=== PATIENT | female | born 1970 | race Caucasian/White ===

== ENCOUNTER 2016-10-27 03:10 | Inpatient (IN) | payer OTHER ==
[~2016-10-27] VITALS: Ht 182.9 cm; Wt 95.5 kg
[2016-10-27 03:42] LABS: BASOPHILS # (AUTO) 0.03 K/uL (0.00-0.20); BASOPHILS % (AUTO) 0.2 % (0.0-2.0); EOSINOPHILS # (AUTO) 0.07 K/uL (0.00-0.70); EOSINOPHILS % (AUTO) 0.52 % (1.0-6.0); HEMATOCRIT 43.9 % (36-46); HEMOGLOBIN 14.9 g/dL (12.0-16.0); LYMPHOCYTES # (AUTO) 2.3 K/uL (1.0-4.8); LYMPHOCYTES % (AUTO) 18.5 % (22.0-44.0); MEAN CORPUSCULAR HEMOGLOBIN 30.4 pg (26.0-34.0); MEAN CORPUSCULAR VOLUME 89 fL (80-100); MONOCYTES # (AUTO) 0.5 K/uL (0.1-1.0); MONOCYTES % (AUTO) 4.2 % (2.0-9.0); NEUTROPHILS # (AUTO) 9.6 K/uL (1.8-7.7); NEUTROPHILS % (AUTO) 76.5 % (40.0-70.0); PLATELET COUNT (AUTO) 421 K/uL (150-450); RED BLOOD CELL COUNT(AUTO) 4.92 MIL/uL (4.00-5.20); WHITE BLOOD COUNT (AUTO) 12.5 K/uL (4.5-11.0)
[2016-10-27 03:51] LABS: ANION GAP 13 mmol/L (8-16); CALCIUM, TOTAL 9.5 mg/dL (8.8-10.5); CARBON DIOXIDE 24 mmol/L (22-29); CHLORIDE 102 mmol/L (98-107); CREATININE 0.92 mg/dL (0.60-1.30); GLOMERULAR FILTR. RATE CALC > 60 mL/min (>60); POTASSIUM 4.3 mmol/L (3.5-5.1); SODIUM SERUM 139 mmol/L (136-145); UREA NITROGEN, BLOOD 13 mg/dL (7-18)
[2016-10-27 03:57] LABS: ALANINE AMINOTRANSFERASE 77 U/L (12-78); ALBUMIN 4.1 g/dL (3.4-5.0); ASPARTATE AMINOTRANSFERASE 32 U/L (15-37); BILIRUBIN,TOTAL 0.5 mg/dL (0.1-1.0); TOTAL PROTEIN, SERUM 8.1 g/dL (6.4-8.2)
[2016-10-27] MEDS ORDERED: HALOPERIDOL LACTATE 5 MG/ML VIAL IM ONE ×2 (04:30→07:00)
[2016-10-27] MEDS ORDERED: LORazepam 2 MG/ML VIAL IM ONE ×2 (04:30→07:00)
[2016-10-27] MEDS ORDERED: DiphenhydrAMINE HCL 50 MG/ML VIAL IM ONE ×2 (04:30→07:00)
[2016-10-27] MEDS ORDERED: ZOLPIDEM TARTRATE 10 MG TABLET PO PRN ×2 (04:45→13:00)
[2016-10-27] MEDS ORDERED: LORazepam 2 MG TABLET PO PRN (04:45)
[2016-10-27] MEDS ORDERED: HALOPERIDOL 5 MG TABLET PO PRN (04:45)
[2016-10-27] MEDS ORDERED: PROMETHAZINE HCL 25 MG TABLET PO PRN (13:00)
[2016-10-27] MEDS ORDERED: MAGNESIUM HYDROXIDE SUSPENSION 30 ML UDCUP PO PRN (13:00)
[2016-10-27] MEDS ORDERED: OLANZapine 5 MG RAPDIS TABLET PO PRN (13:00)
[2016-10-27] MEDS ORDERED: ACETAMINOPHEN 325 MG TABLET PO PRN (13:00)
[2016-10-27] MEDS ORDERED: HydrOXYzine PAMOATE 50 MG CAPSULE PO PRN (13:00)
[2016-10-27] MEDS ORDERED: GuaiFENesin/D-METHORPHAN [SUGAR-FREE] 200-20MG/10 ML SYRUP UDCUP PO PRN (13:00)
[2016-10-27] MEDS ORDERED: MAG HYDROX/AL HYDROX/SIMETH ES 30 ML SUSPENSION UDCUP PO PRN (13:00)
[2016-10-27] MEDS ORDERED: LOPERAMIDE HCL 2 MG CAPSULE PO PRN (13:00)
[2016-10-27 14:13] VITALS: BP 116/67
[2016-10-27 16:00] VITALS: BP 113/67
[2016-10-27] MEDS: THIAMINE HCL 100 MG TABLET PO SCH (16:27)
[2016-10-27] MEDS: PRAZOSIN HCL 1 MG CAPSULE PO SCH (20:46)
[2016-10-27 20:48] VITALS: BP 110/85
[2016-10-27] MEDS ORDERED: OLANZapine 5 MG RAPDIS TABLET PO SCH (21:00)
[2016-10-28] MEDS ORDERED: PNEUMOCOCCAL VACCINE POLYVALENT 0.5 ML VIAL [PPSV23] IM ONE (01:45)
[2016-10-28] MEDS ORDERED: INFLUENZA VIRUS VACCINE QVS 2016-17 (3YR+)/PF 60 MCG/0.5 ML SYRINGE IM ONE (01:45)
[2016-10-28 06:32] VITALS: BP 132/79
[2016-10-28 06:58] LABS: GLUCOSE,POINT OF CARE 152 MG/DL (70-110)
[2016-10-28 08:22] VITALS: BP 121/73
[2016-10-28] MEDS: MULTIVITAMINS WITH MINERALS, THERAPEUTIC TABLET PO SCH (08:31)
[2016-10-28] MEDS: THIAMINE HCL 100 MG TABLET PO SCH ×2 (08:31→16:05)
[2016-10-28] MEDS: FOLIC ACID 1 MG TABLET PO SCH (08:31)
[2016-10-28 08:35] LABS: CHOL/HDL RATIO 5.6 (3.9-5.7); THYROID STIMULATING HORMONE 0.48 uIU/mL (0.36-3.74)
[2016-10-28] MEDS ORDERED: FLUoxetine HCL 10 MG CAPSULE PO SCH (09:00)
[2016-10-28] MEDS ORDERED: ZIPRASIDONE HCL 20 MG CAPSULE PO PRN (09:30)
[2016-10-28 13:00] VITALS: BP 142/83
[2016-10-28 13:32] LABS: GLUCOSE,POINT OF CARE 166 MG/DL (70-110)
[2016-10-28 15:11] VITALS: BP 125/77
[2016-10-28 16:00] VITALS: BP 130/70
[2016-10-28] MEDS: ZIPRASIDONE HCL 20 MG CAPSULE PO SCH (16:04)
[2016-10-28] MEDS: LORazepam 2 MG TABLET PO PRN (16:05)
[2016-10-28] MEDS: PRAZOSIN HCL 1 MG CAPSULE PO SCH (20:13)
[2016-10-28] MEDS ORDERED: ACETAMINOPHEN 325 MG TABLET PO PRN (22:00)
[2016-10-28] MEDS ORDERED: IBUPROFEN 400 MG TABLET PO PRN (22:00)
[2016-10-29] MEDS: LORazepam 2 MG TABLET PO PRN ×2 (01:31→17:58)
[2016-10-29 01:34] VITALS: BP 128/79
[2016-10-29] MEDS: ZIPRASIDONE HCL 20 MG CAPSULE PO SCH (06:17)
[2016-10-29 08:02] VITALS: BP 124/76
[2016-10-29] MEDS: MULTIVITAMINS WITH MINERALS, THERAPEUTIC TABLET PO SCH (08:54)
[2016-10-29] MEDS: THIAMINE HCL 100 MG TABLET PO SCH ×2 (08:54→16:16)
[2016-10-29] MEDS: FOLIC ACID 1 MG TABLET PO SCH (08:54)
[2016-10-29 09:28] LABS: HEMOGLOBIN A1C 6.2 % (4.5-6.2)
[2016-10-29 09:50] LABS: CHOL/HDL RATIO 5.8 (3.9-5.7); THYROID STIMULATING HORMONE 0.83 uIU/mL (0.36-3.74)
[2016-10-29 16:10] VITALS: BP 157/93
[2016-10-29] MEDS: ZIPRASIDONE HCL 40 MG CAPSULE PO SCH (16:17)
[2016-10-29 16:22] LABS: GLUCOSE,POINT OF CARE 142 MG/DL (70-110)
[2016-10-29] MEDS ORDERED: ZIPR40CA2 PO (17:37)
[2016-10-29] MEDS ORDERED: PRAZ1 PO (17:37)
[2016-10-29] MEDS: PRAZOSIN HCL 1 MG CAPSULE PO SCH (21:13)
[2016-10-30 04:46] VITALS: BP 129/87
[2016-10-30 06:56] LABS: GLUCOSE,POINT OF CARE 180 MG/DL (70-110)
[2016-10-30] MEDS: ZIPRASIDONE HCL 40 MG CAPSULE PO SCH (06:56)
[2016-10-30 08:06] VITALS: BP 119/85
[2016-10-30] MEDS: MULTIVITAMINS WITH MINERALS, THERAPEUTIC TABLET PO SCH (08:34)
[2016-10-30] MEDS: FOLIC ACID 1 MG TABLET PO SCH (08:34)
[2016-10-30] MEDS: THIAMINE HCL 100 MG TABLET PO SCH (08:34)
== END 2016-10-30 12:15 | disposition home or self-care (01) | DRG 885 ==
LOC: EMS 03:13 → B3A 13:59
PROVIDERS: ADMIT Psychiatry & Neurology Psychiatry; ATTEND Psychiatry & Neurology Psychiatry
DX: F31.5 Bipolar disorder, current episode depressed, severe, with psychotic features (principal); F43.10 Post-traumatic stress disorder, unspecified; J45.909 Unspecified asthma, uncomplicated; M19.90 Unspecified osteoarthritis, unspecified site; I10 Essential (primary) hypertension; F31.2 Bipolar disorder, current episode manic severe with psychotic features; E78.5 Hyperlipidemia, unspecified; R73.9 Hyperglycemia, unspecified; D72.829 Elevated white blood cell count, unspecified; F19.10 Other psychoactive substance abuse, uncomplicated; F17.210 Nicotine dependence, cigarettes, uncomplicated; Z91.14 Patient's other noncompliance with medication regimen; Z28.21 Immunization not carried out because of patient refusal; Z91.411 Personal history of adult psychological abuse; Z91.410 Personal history of adult physical and sexual abuse; Z65.3 Problems related to other legal circumstances
CPT/HCPCS: 82962; 83036; 84439; 84443; 93005; 96372; 99285; G0480; J1200; J1630; J2060